=== PATIENT | female | born 1980 | race Hispanic/Latino ===

== ENCOUNTER 2017-10-14 18:22 | Emergency (ER) | payer SELFPAY ==
[2017-10-14 19:15] LABS: BILIRUBIN,URINE Negative (NEGATIVE); COLOR,URINE Yellow (YELLOW); GLUCOSE, URINE (UA) Negative (NEGATIVE); KETONES,URINE Negative (NEGATIVE); LEUKOCYTE ESTERASE ,URINE Small (NEGATIVE); NITRATE,URINE Negative (NEGATIVE); OCCULT BLOOD,URINE Large (NEGATIVE); PH,URINE 5.5 (5.0-8.0); PROTEIN,URINE Negative (NEGATIVE)
[2017-10-14 19:18] LABS: APPEARANCE,URINE SLIGHTLY CLOUDY (CLEAR)
[2017-10-14 19:19] LABS: HCG,QUAL RESULT NEGATIVE (NEGATIVE)
[2017-10-14 19:24] LABS: BASOPHILS % (AUTO) 0.8 % (0.0-5.0); EOSINOPHILS % (AUTO) 1.3 % (0.0-8.0); HEMATOCRIT 35.5 % (36-48); LYMPHOCYTES % (AUTO) 29.6 % (21.0-51.0); MEAN CORPUSCULAR HEMOGLOBIN 31.4 pg (27.0-33.0); MEAN CORPUSCULAR VOLUME 92.3 fL (79-99); MONOCYTES % (AUTO) 6.2 % (3.0-13.0); NEUTROPHILS % (AUTO) 62.1 % (40.0-77.0); PLATELET COUNT (AUTO) 387 K/uL (130-400); RED BLOOD CELL COUNT(AUTO) 3.85 MIL/uL (4.00-5.50); WHITE BLOOD COUNT (AUTO) 8.3 K/uL (4.8-10.8)
[2017-10-14] MEDS ORDERED: DEXAMETHASONE SOD PHOSPHATE 10MG/ML 1ML VIAL ONE (19:30)
[2017-10-14] MEDS ORDERED: KETOROLAC TROMETHAMINE 30MG/ML ONE (19:30)
[2017-10-14] MEDS ORDERED: SODIUM CHLORIDE 0.9% 1000ML 1,000 ML IV ONE (19:30)
[2017-10-14 19:41] LABS: CREATININE 0.5 mg/dL (0.5-1.5); POTASSIUM 3.9 mmol/L (3.5-5.1)
[2017-10-14 19:41] LABS: BACTERIA,URINE Few /HPF (None Seen)
[2017-10-14 19:42] LABS: AMORPHOUS SEDIMENT,UR Rare /LPF (None Seen); SQUAMOUS EPITHELIAL CELL,UR Few /HPF (0-2)
[2017-10-14] MEDS ORDERED: DiphenhydrAMINE HCL 50 MG/ML VIAL ONE (20:22)
[2017-10-14] MEDS ORDERED: CEFTRIAXONE SODIUM 1 GM ONE (20:23)
[2017-10-14] MEDS ORDERED: PROCHLORPERAZINE EDISYLATE 10 MG/2 ML VIAL ONE (20:23)
== END 2017-10-14 20:56 | disposition home or self-care (01) ==
LOC: EDH 18:22
DX: N39.0 Urinary tract infection, site not specified (principal); R51 Headache; R09.81 Nasal congestion; I10 Essential (primary) hypertension; Z79.899 Other long term (current) drug therapy
CPT/HCPCS: 36415; 70450; 80048; 81001; 81025; 85025; 96374; 96375; 99285; J0696; J0780; J1100; J1200; J1885; J7030

== ENCOUNTER 2017-10-19 16:49 | Inpatient (IN) | payer SELFPAY ==
[~2017-10-19] VITALS: Ht 162.6 cm; Wt 106.6 kg
[2017-10-19] MEDS ORDERED: SODIUM CHLORIDE 0.9% 1000ML 1,000 ML IV ONE ×2 (17:24→20:22)
[2017-10-19 17:28] LABS: BASOPHILS % (AUTO) 0.3 % (0.0-5.0); EOSINOPHILS % (AUTO) 0.1 % (0.0-8.0); HEMATOCRIT 38.3 % (36-48); LYMPHOCYTES % (AUTO) 11.2 % (21.0-51.0); MEAN CORPUSCULAR HEMOGLOBIN 30.8 pg (27.0-33.0); MEAN CORPUSCULAR HGB CONC 33.7 g/dL (32.0-36.0); MEAN CORPUSCULAR VOLUME 91.3 fL (79-99); MONOCYTES % (AUTO) 2.7 % (3.0-13.0); NEUTROPHILS % (AUTO) 85.7 % (40.0-77.0); PLATELET COUNT (AUTO) 471 K/uL (130-400); RED BLOOD CELL COUNT(AUTO) 4.19 MIL/uL (4.00-5.50); RED CELL DISTRIBUTION WIDTH 13.7 % (11.0-15.5); WHITE BLOOD COUNT (AUTO) 12.8 K/uL (4.8-10.8)
[2017-10-19] MEDS ORDERED: METOCLOPRAMIDE 10 MG/2 ML VIAL ONE (17:32)
[2017-10-19] MEDS ORDERED: HYDROCODONE/ACETAMINOPHEN 10/325 MG TAB ONE (17:32)
[2017-10-19 17:42] LABS: CREATININE 0.5 mg/dL (0.5-1.5); POTASSIUM 3.1 mmol/L (3.5-5.1)
[2017-10-19 17:47] LABS: BILIRUBIN,TOTAL 0.3 mg/dL (0.2-1.0)
[2017-10-19 18:29] LABS: APPEARANCE,URINE Clear (CLEAR); BILIRUBIN,URINE Negative (NEGATIVE); COLOR,URINE Yellow (YELLOW); GLUCOSE, URINE (UA) Negative (NEGATIVE); KETONES,URINE 40 mg/dL (NEGATIVE); LEUKOCYTE ESTERASE ,URINE Negative (NEGATIVE); NITRATE,URINE Negative (NEGATIVE); OCCULT BLOOD,URINE Trace (NEGATIVE); PROTEIN,URINE POS 1+ (NEGATIVE); UROBILINOGEN,URINE 0.2 mg/dL (0.2-1.0)
[2017-10-19 18:52] LABS: BACTERIA,URINE Rare /HPF (None Seen); RBC,URINE None Seen /HPF (0-1); WBC,URINE 0-1 /HPF (0-1)
[2017-10-19 19:15] LABS: GLUCOSE, CSF 59 mg/dL (40-70); TOTAL PROTEIN, CSF 79 mg/dL (15-45)
[2017-10-19 19:43] LABS: CSF TOTAL VOLUME 6.5 mL; CSF TUBE NUMBER 1
[2017-10-19 19:44] LABS: APPEARANCE,CSF CLEAR (CLEAR); COLOR,CSF COLORLESS (COLORLESS); RED BLOOD CELL1,CSF 60 CMM (0-0); WHITE BLOOD CELL1,CSF 22 CMM (0-5)
[2017-10-19 19:45] LABS: APPEARANCE2,CSF CLEAR (CLEAR); COLOR2,CSF COLORLESS (COLORLESS); CSF 2ND TUBE NUMBER 2
[2017-10-19 19:50] LABS: LYMPHOCYTES1,CSF 85 %; MONOCYTES1,CSF 3 %; NEUTROPHILS1,CSF 12 %
[2017-10-19 19:53] LABS: CSF LYMPHOCYTES2 79 %; MONOCYTES2,CSF 4 %; NEUTROPHILS2,CSF 17 %
[2017-10-19] MEDS ORDERED: MEROPENEM 1 GM VIAL ONE (20:21)
[2017-10-19] MEDS ORDERED: VANCOMYCIN 1GM+NS 250ML 500 ML IV ONE (20:35)
[2017-10-19] MEDS ORDERED: HYDROCODONE/ACETAMINOPHEN 10/325 MG TAB PO PRN (21:30)
[2017-10-19] MEDS ORDERED: ONDANSETRON HCL 4 MG/2 ML VIAL IVP PRN (21:30)
[2017-10-19] MEDS: SODIUM CHLORIDE 0.9% 1000ML 1,000 ML IV SCH (21:30)
[2017-10-19] MEDS ORDERED: HYDRALAZINE HCL 20 MG/ML VIAL IV PRN (21:30)
[2017-10-19] MEDS ORDERED: ONDANSETRON HCL MDV 20ML 2 MG/ML VIAL IVP PRN (22:45)
[2017-10-19] MEDS ORDERED: POTASSIUM CHLORIDE 10% ELIXIR 20 MEQ/15 ML UDCUP PO PRN ×2 (23:30)
[2017-10-19] MEDS ORDERED: POTASSIUM CHLORIDE 20 MEQ ERTAB PO PRN ×2 (23:30)
[2017-10-19] MEDS ORDERED: LIDOCAINE HCL-MPF 1% 2ML VIAL IVP PRN ×2 (23:30)
[2017-10-19] MEDS ORDERED: POTASSIUM CHLORIDE 20MEQ/100ML 100 ML IV PRN ×2 (23:30)
[2017-10-20] MEDS ORDERED: HYDROCODONE/ACETAMINOPHEN 10/325 MG TAB ONE (00:54)
[2017-10-20] MEDS ORDERED: POTASSIUM CHLORIDE 10% ELIXIR 20 MEQ/15 ML UDCUP ONE ×2 (01:23→04:04)
[2017-10-20] MEDS ORDERED: MEROPENEM 500 MG VIAL ONE (04:04)
[2017-10-20] MEDS ORDERED: SODIUM CHLORIDE 0.9% 1000ML 1,000 ML IV ONE (04:37)
[2017-10-20 04:50] VITALS: BP 128/86
[2017-10-20] MEDS ORDERED: TRAM50TA4 PO (05:25)
[2017-10-20] MEDS ORDERED: LISI40TA4 PO (05:25)
[2017-10-20] MEDS ORDERED: FERR1TAB66 PO (05:39)
[2017-10-20] MEDS ORDERED: MEROPENEM 500MG+NS 50ML 50 ML IV SCH (06:00)
[2017-10-20] MEDS: MEROPENEM 500 MG VIAL IVP SCH ×2 (06:14→13:16)
[2017-10-20] MEDS: HYDROCODONE/ACETAMINOPHEN 10/325 MG TAB PO PRN ×3 (07:44→20:41)
[2017-10-20 08:00] VITALS: BP 122/78
[2017-10-20] MEDS ORDERED: FAMOTIDINE 20MG TAB 20 MG TAB PO ONE (09:00)
[2017-10-20] MEDS: SODIUM CHLORIDE 0.9% 1000ML 1,000 ML IV SCH (10:36)
[2017-10-20] MEDS: ENOXAPARIN SODIUM 40 MG/0.4 ML SYRINGE SQ SCH (10:37)
[2017-10-20 11:00] VITALS: BP 115/58
[2017-10-20] MEDS ORDERED: ONDANSETRON HCL 4 MG/2 ML VIAL ONE (13:00)
[2017-10-20 16:00] VITALS: BP 113/68
[2017-10-20] MEDS: VALACYCLOVIR HCL 500 MG TABLET PO SCH (16:29)
[2017-10-20 19:00] VITALS: BP 129/79
[2017-10-20 23:40] VITALS: BP 131/73
[2017-10-21] MEDS: SODIUM CHLORIDE 0.9% 1000ML 1,000 ML IV SCH ×2 (01:05→23:33)
[2017-10-21 04:00] VITALS: BP 123/78
[2017-10-21] MEDS: VALACYCLOVIR HCL 500 MG TABLET PO SCH ×2 (04:26→18:05)
[2017-10-21] MEDS: HYDROCODONE/ACETAMINOPHEN 10/325 MG TAB PO PRN ×3 (04:26→13:24)
[2017-10-21] MEDS: ENOXAPARIN SODIUM 40 MG/0.4 ML SYRINGE SQ SCH (07:54)
[2017-10-21 07:57] VITALS: BP 139/87
[2017-10-21 12:00] VITALS: BP 120/76
[2017-10-21] MEDS ORDERED: ONDANSETRON HCL 4 MG/2 ML VIAL ONE (12:40)
[2017-10-21] MEDS ORDERED: KETOROLAC TROMETHAMINE 30MG/ML ONE (13:52)
[2017-10-21] MEDS ORDERED: ISOVUE-370 50ML VIAL IV ONE (13:55)
[2017-10-21] MEDS ORDERED: KETOROLAC TROMETHAMINE 30MG/ML IM PRN (14:00)
[2017-10-21 16:00] VITALS: BP 128/83
[2017-10-21 19:16] VITALS: BP 132/76
[2017-10-21 23:28] VITALS: BP 134/79
[2017-10-22] MEDS: KETOROLAC TROMETHAMINE 30MG/ML IVP PRN ×3 (01:30→20:16)
[2017-10-22] MEDS: SODIUM CHLORIDE 0.9% 1000ML 1,000 ML IV SCH ×2 (02:50→14:39)
[2017-10-22 03:21] VITALS: BP 135/76
[2017-10-22 04:39] LABS: HEMATOCRIT 33.8 % (36-48); MEAN CORPUSCULAR HEMOGLOBIN 32.3 pg (27.0-33.0); MEAN CORPUSCULAR HGB CONC 35.1 g/dL (32.0-36.0); MEAN CORPUSCULAR VOLUME 92.2 fL (79-99); PLATELET COUNT (AUTO) 387 K/uL (130-400); RED BLOOD CELL COUNT(AUTO) 3.67 MIL/uL (4.00-5.50); WHITE BLOOD COUNT (AUTO) 10.1 K/uL (4.8-10.8)
[2017-10-22 04:48] LABS: CREATININE 0.7 mg/dL (0.5-1.5); POTASSIUM 4.1 mmol/L (3.5-5.1)
[2017-10-22] MEDS: VALACYCLOVIR HCL 500 MG TABLET PO SCH ×2 (04:54→19:15)
[2017-10-22 06:09] LABS: BAND NEUTROPHILS % (MANUAL) 1 % (0-2); BASOPHILS % (MANUAL) 1 % (0-2); EOSINOPHILS % (MANUAL) 1 % (1-6); LYMPHOCYTES % (MANUAL) 37 % (22-44); MONOCYTES % (MANUAL) 5 % (2-9); SEGMENTED NEUTROPHILS % 55 % (40-70)
[2017-10-22 06:10] LABS: MAN.DIFF COMMENT-IMPRESSION MANUAL DIFFERENTIAL; PLATELET MORPHOLOGY COMMENT ADEQUATE
[2017-10-22 07:30] VITALS: BP 149/87
[2017-10-22] MEDS ORDERED: ONDANSETRON HCL 4 MG/2 ML VIAL ONE (08:06)
[2017-10-22] MEDS: ENOXAPARIN SODIUM 40 MG/0.4 ML SYRINGE SQ SCH (08:22)
[2017-10-22 11:00] VITALS: BP 139/79
[2017-10-22] MEDS ORDERED: IOPAMIDOL-370 100 ML VIAL IV ONE (11:04)
[2017-10-22 16:00] VITALS: BP 142/83
[2017-10-22 20:13] VITALS: BP 178/89
[2017-10-23 00:16] VITALS: BP 133/79
[2017-10-23 04:08] VITALS: BP 121/81
[2017-10-23] MEDS: SODIUM CHLORIDE 0.9% 1000ML 1,000 ML IV SCH (04:49)
[2017-10-23] MEDS: KETOROLAC TROMETHAMINE 30MG/ML IVP PRN (04:51)
[2017-10-23] MEDS: VALACYCLOVIR HCL 500 MG TABLET PO SCH (04:53)
[2017-10-23 07:54] VITALS: BP 126/82
[2017-10-23] MEDS: ENOXAPARIN SODIUM 40 MG/0.4 ML SYRINGE SQ SCH (09:50)
[2017-10-23] MEDS ORDERED: VALA500T PO (12:06)
[2017-10-23 12:55] VITALS: BP 138/92
== END 2017-10-23 13:50 | disposition home or self-care (01) | DRG 103 ==
LOC: EDH 16:49 → EDHIP 16:50 → 4CH 10-20 04:59 → 4BH 10-23 05:10
PROVIDERS: ADMIT Family Medicine; ATTEND Family Medicine
DX: R51 Headache (principal); Z68.41 Body mass index [BMI] 40.0-44.9, adult; E66.9 Obesity, unspecified; D64.9 Anemia, unspecified; I10 Essential (primary) hypertension
CPT/HCPCS: 36415; 70470; 70496; 80048; 80053; 81001; 82945; 84132; 84157; 84703; 85025; 87071; 87205; 87252; 89051; 99291; A4218; J1650; J1885; J2185; J2405; J2765; J3370; J7030; Q9967

== ENCOUNTER 2017-10-28 19:12 | Emergency (ER) | payer SELFPAY ==
[~2017-10-28 19:12] MED LIST: FERR1TAB66 PO; LISI40TA4 PO; TRAM50TA4 PO; VALA500T PO
== END 2017-10-28 20:01 | disposition home or self-care (01) ==
LOC: EDH 19:12
DX: K59.03 Drug induced constipation (principal); D64.9 Anemia, unspecified; I10 Essential (primary) hypertension; Z79.899 Other long term (current) drug therapy
CPT/HCPCS: 99281; 99282

== ENCOUNTER 2018-05-21 16:14 | Emergency (ER) | payer SELFPAY ==
[2018-05-21] MEDS ORDERED: SODIUM CHLORIDE 0.9% 1000ML 1,000 ML IV ONE (18:26)
[2018-05-21] MEDS ORDERED: KETOROLAC TROMETHAMINE 30MG/ML ONE (18:27)
[2018-05-21] MEDS ORDERED: PROCHLORPERAZINE EDISYLATE 10 MG/2 ML VIAL ONE (18:27)
[2018-05-21 18:48] LABS: BASOPHILS % (AUTO) 0.8 % (0.0-5.0); EOSINOPHILS % (AUTO) 1.3 % (0.0-8.0); HEMATOCRIT 27.7 % (36-48); LYMPHOCYTES % (AUTO) 29.4 % (21.0-51.0); MEAN CORPUSCULAR HEMOGLOBIN 23.7 pg (27.0-33.0); MEAN CORPUSCULAR HGB CONC 30.9 g/dL (32.0-36.0); MEAN CORPUSCULAR VOLUME 76.5 fL (79-99); MONOCYTES % (AUTO) 5.7 % (3.0-13.0); NEUTROPHILS % (AUTO) 62.8 % (40.0-77.0); PLATELET COUNT (AUTO) 417 K/uL (130-400); RED BLOOD CELL COUNT(AUTO) 3.62 MIL/uL (4.00-5.50); RED CELL DISTRIBUTION WIDTH 16.8 % (11.0-15.5); WHITE BLOOD COUNT (AUTO) 9.2 K/uL (4.8-10.8)
[2018-05-21 18:59] LABS: CREATININE 0.7 mg/dL (0.5-1.5); POTASSIUM 3.7 mmol/L (3.5-5.1)
[2018-05-21 19:00] LABS: INR 0.96 (0.85-1.15); PARTIAL THROMBOPLASTIN TIME 26.3 SEC (26.3-35.5); PROTHROMBIN TIME 10.1 SEC (9.6-11.6)
[2018-05-21 19:04] LABS: ALBUMIN 3.4 g/dL (3.5-5.0); BILIRUBIN,TOTAL 0.1 mg/dL (0.2-1.0); TOTAL PROTEIN, SERUM 7.3 g/dL (6.0-8.3)
== END 2018-05-21 22:05 | disposition home or self-care (01) ==
LOC: EDH 16:14
DX: R51 Headache (principal); G89.29 Other chronic pain; D64.9 Anemia, unspecified; N92.0 Excessive and frequent menstruation with regular cycle; R42 Dizziness and giddiness; I10 Essential (primary) hypertension
CPT/HCPCS: 36415; 80053; 85025; 85610; 85730; 96361; 96374; 96375; 99283; J0780; J1885; J7030